=== PATIENT | female | born 1990 | race American Indian/Alaskan Native ===

== ENCOUNTER 2016-12-06 04:44 | Emergency (ER) | payer OTHER, MEDICAID ==
[2016-12-06 05:47] LABS: Basophils % (Auto) 0.3 % (0.0-1.8); Eosinophils % (Auto) 2.8 % (0.0-4.3); Hematocrit 38.9 % (30.3-42.9); Hemoglobin 13.2 gm/dl (10.1-14.3); Mean Corpuscular HGB Conc 34 % (30-34); Mean Corpuscular Hemoglobin 28 pg (28-32); Mean Corpuscular Volume 83 fl (79-97); Platelet Count 158 K/mm3 (140-440); Red Blood Count 4.69 M/mm3 (3.65-5.03); Red Cell Distribution Width 13.5 % (13.2-15.2); White Blood Count 8.1 K/mm3 (4.5-11.0)
[2016-12-06 05:59] LABS: Urine Drugs of Abuse Note Disclamer
[2016-12-06 06:12] LABS: Anion Gap 17 mmol/L; Blood Urea Nitrogen 9 mg/dL (7-17); Calcium 9.3 mg/dL (8.4-10.2); Carbon Dioxide 23 mmol/L (22-30); Chloride 100.6 mmol/L (98-107); Glucose 95 mg/dL (65-100); Sodium 137 mmol/L (137-145)
[2016-12-06 06:27] LABS: Bilirubin,Urine NEG (Negative); Blood,Urine MOD (Negative); Ketones,Urine NEG (Negative); Leukocyte Esterase,Urine NEG (Negative); Mucus,Urine 1+ /HPF; Nitrite,Urine NEG (Negative); Protein,Urine <15 mg/dL mg/dL (Negative)
--- NOTE | 2016-12-06 08:26 | Emergency Department Report ---
ED Psych HPI - General Chief Complaint: Psych Stated Complaint: HEADACHES, SHAKES, SKITSOFRANTIC Time Seen by Provider: 12/06/16 08:08 Source: patient Mode of arrival: Ambulatory - History of Present Illness Initial Comments: 26-year-old female known schizophrenic has not been taking medications for the last 7 months here with complaint of increasing auditory hallucinations. Patient states that a girl named Farida is telling her to do things. She did take a single dose of her Depakote yesterday. Denies suicidal ideation and denies homicidal ideation. States she has having some anger management issues. Recently moved approximately 3 months ago and has no psychiatrist. MD Complaint: other (auditory hallucinations) Associated Psychiatric Symptoms: racing thoughts, auditory hallucinations, other (anger management) Quality: intermittent Improves With: medication Worsens With: none Context: significant life stressor Associated Symptoms: denies: confusion, headache, shortness of breath, nausea, vomiting, syncope, insomnia Treatments Prior to Arrival: none - Related Data Home Medications Medication Instructions Recorded Confirmed Last Taken Divalproex Sodium [Divalproex 500 mg PO BID 12/06/16 12/06/16 12/05/16 Sodium ER] Allergies Allergy/AdvReac Type Severity Reaction Status Date / Time No Known Allergies Allergy Verified 12/06/16 04:57 ED Review of Systems ROS: Stated complaint: HEADACHES, SHAKES, SKITSOFRANTIC Other details as noted in HPI Comment: All other systems reviewed and negative Constitutional: denies: chills, fever Eyes: denies: eye pain, eye discharge, vision change ENT: denies: ear pain, throat pain Respiratory: denies: cough, shortness of breath, wheezing Cardiovascular: denies: chest pain, palpitations Endocrine: no symptoms reported Gastrointestinal: denies: abdominal pain, nausea, diarrhea Genitourinary: denies: urgency, dysuria, discharge Musculoskeletal: denies: back pain, joint swelling, arthralgia Skin: denies: rash, lesions Neurological: denies: headache, weakness, paresthesias Psychiatric: auditory hallucinations. denies: anxiety, depression, visual hallucinations, homicidal thoughts, suicidal thoughts Hematological/Lymphatic: denies: easy bleeding, easy bruising ED Past Medical Hx - Past Medical History Previous Medical History?: Yes Hx Psychiatric Treatment: Yes (Schizophrenia, Anger issues, Anxiety, depression) Additional medical history: Headaches, - Surgical History Past Surgical History?: No - Family History Family history: no significant - Social History Smoking Status: Never Smoker Substance Use Type: None - Medications Home Medications: Home Medications Medication Instructions Recorded Confirmed Last Taken Type Divalproex Sodium [Divalproex 500 mg PO BID 12/06/16 12/06/16 12/05/16 History Sodium ER] ED Physical Exam - General Limitations: No Limitations General appearance: alert, in no apparent distress - Head Head exam: Present: atraumatic, normocephalic - Eye Eye exam: Present: normal appearance - ENT ENT exam: Present: mucous membranes moist - Neck Neck exam: Present: normal inspection. Absent: lymphadenopathy, thyromegaly - Respiratory Respiratory exam: Present: normal lung sounds bilaterally. Absent: respiratory distress, wheezes, rales - Cardiovascular Cardiovascular Exam: Present: regular rate, normal rhythm. Absent: systolic murmur, diastolic murmur, rubs, gallop - GI/Abdominal GI/Abdominal exam: Present: soft, normal bowel sounds - Extremities Exam Extremities exam: Present: normal inspection - Back Exam Back exam: Present: normal inspection - Neurological Exam Neurological exam: Present: alert, oriented X3 - Psychiatric Psychiatric exam: Present: normal affect, normal mood. Absent: homicidal ideation, suicidal ideation - Skin Skin exam: Present: warm, dry, intact, normal color. Absent: rash ED Course Vital Signs 12/06/16 12/06/16 04:58 09:25 Temperature 98.5 F Pulse Rate 85 Respiratory 18 16 Rate Blood Pressure 118/80 [Right] O2 Sat by Pulse 99 100 Oximetry ED Medical Decision Making - Lab Data Result diagrams: 12/06/16 05:03 12/06/16 05:03 Laboratory Results - last 24 hr 12/06/16 12/06/16 12/06/16 05:03 05:03 05:03 WBC RBC Hgb Hct MCV MCH MCHC RDW Plt Count Lymph % (Auto) Holmes % (Auto) Eos % (Auto) Baso % (Auto) Lymph # Holmes # Eos # Baso # Seg Neutrophils % Seg Neutrophils # Sodium 137 Potassium 4.0 Chloride 100.6 Carbon Dioxide 23 Anion Gap 17 BUN 9 Creatinine 0.6 L Estimated GFR > 60 BUN/Creatinine Ratio 15.00 Glucose 95 Calcium 9.3 HCG, Qual Negative Urine Color Urine Turbidity Urine pH Ur Specific [place] Urine Protein Urine Glucose (UA) Urine Ketones Urine Blood Urine Nitrite Urine Bilirubin Urine Urobilinogen Ur Leukocyte Esterase Urine WBC (Auto) Urine RBC (Auto) U Epithel Cells (Auto) Urine Mucus Urine Opiates Screen Urine Methadone Screen Ur Barbiturates Screen Ur Phencyclidine Scrn Ur Amphetamines Screen U Benzodiazepines Scrn Urine Cocaine Screen U Marijuana (THC) Screen Drugs of Abuse Note Plasma/Serum Alcohol < 0.01 12/06/16 12/06/16 12/06/16 05:03 05:14 05:14 WBC 8.1 RBC 4.69 Hgb 13.2 Hct 38.9 MCV 83 MCH 28 MCHC 34 RDW 13.5 Plt Count 158 Lymph % (Auto) 30.3 Holmes % (Auto) 3.3 Eos % (Auto) 2.8 Baso % (Auto) 0.3 Lymph # 2.5 Holmes # 0.3 Eos # 0.2 Baso # 0.0 Seg Neutrophils % 63.3 Seg Neutrophils # 5.2 Sodium Potassium Chloride Carbon Dioxide Anion Gap BUN Creatinine Estimated GFR BUN/Creatinine Ratio Glucose Calcium HCG, Qual Urine Color Yellow Urine Turbidity Clear Urine pH 6.0 Ur Specific [place] 1.028 Urine Protein <15 mg/dl Urine Glucose (UA) Neg Urine Ketones Neg Urine Blood Mod Urine Nitrite Neg Urine Bilirubin Neg Urine Urobilinogen 4.0 Ur Leukocyte Esterase Neg Urine WBC (Auto) 2.0 Urine RBC (Auto) 72.0 U Epithel Cells (Auto) 4.0 Urine Mucus 1+ Urine Opiates Screen Presumptive negative Urine Methadone Screen Presumptive negative Ur Barbiturates Screen Presumptive negative Ur Phencyclidine Scrn Presumptive negative Ur Amphetamines Screen Presumptive negative U Benzodiazepines Scrn Presumptive negative Urine Cocaine Screen Presumptive negative U Marijuana (THC) Screen Presumptive negative Drugs of Abuse Note Disclamer Plasma/Serum Alcohol - Medical Decision Making This is a 26-year-old female here with complaint of increasing anger management issues and auditory hallucinations. Denies SI or HI. This point I do not feel like she is actively a threat to herself or anybody else and I do not plan to 1013 her however I would like to offer her a mental health assessment. Patient evaluated by mental health and they feel comfortable with the patient following up as an outpatient. They will provide outpatient resources for the patient. Critical care attestation.: If time is entered above; I have spent that time in minutes in the direct care of this critically ill patient, excluding procedure time. ED Disposition Clinical Impression: Schizophrenia, Auditory hallucinations Disposition: DC-01 TO HOME OR SELFCARE Is pt being admited?: No Condition: Stable Instructions: Schizophrenia (ED) Additional Instructions: Please follow up with the resources provided by mental health solar resource assessor. Referrals: PRIMARY CARE, [Primary Care Provider] - 3-5 Days
[2016-12-06 14:21] VITALS: BP 96/52
--- NOTE | 2016-12-06 14:31 | Consultation ---
History of Present Illness - Reason for Consult Consult date: 12/06/16 Reason for consult: psychiatric evaluation - Chief Complaint Chief complaint: "I took my meds and felt shaky and dizzy." 26-year-old female known schizophrenic has not been taking medications for the last 7 months here with complaint of increasing auditory hallucinations. She was seen for psychiatric evaluation in the ER. She did take a single dose of her Depakote yesterday. She denies suicidal ideation and denies homicidal ideation. She reports recent command hallucinations to harm herself but denies ever acting on any command hallucinations. She now denies AH. She reports having a stressful situation at her job and the AH started after it. States she has having some anger management issues and throws stuff in her home when she is upset. She lives alone. Recently moved approximately 3 months ago and has no psychiatrist. Her goal for treatment in the ER was to "talk to someone" and find out how to get a new doctor. Medications and Allergies Allergies Allergy/AdvReac Type Severity Reaction Status Date / Time No Known Allergies Allergy Verified 12/06/16 04:57 Home Medications Medication Instructions Recorded Confirmed Last Taken Type Divalproex Sodium [Divalproex 500 mg PO BID 12/06/16 12/06/16 12/05/16 History Sodium ER] Ibuprofen [Motrin] 600 mg PO Q8H PRN #30 tablet 12/06/16 Unknown Rx Past psychiatric history - past Psychiatric treatment and history Psych: Depression - Social History Social history: Lives alone, other (denies alcohol or substance use) Mental Status Exam - Vital signs Last Vital Signs Temp 98.6 F 12/06/16 11:10 Pulse 70 12/06/16 11:10 Resp 16 12/06/16 11:10 BP 96/52 12/06/16 11:10 Pulse Ox 100 12/06/16 11:10 - Exam Narrative exam: at one point in the interview, she closed her eyes and did not answer a question. Orientation: time, place, person Affect: other (childlike) Mood: calm Thought content: other (no SI, no HI) Thought Process: Intact Perceptions: auditory (recent command hallucinations) Speech: normal rate and pattern Concentration: focused Motor activity: normal Level of consciousness: alert Memory: Intact Interaction: cooperative Results Result Diagrams: 12/06/16 05:03 12/06/16 05:03 Abnormal lab results 12/06/16 Range/Units 05:03 Creatinine 0.6 L (0.7-1.2) mg/dL All other labs normal. Assessment and Plan Assessment and plan: Impression: No active suicidal ideation. No homicidal ideation. AH have resolved and there are no command hallucinations. She has a child-like demeanor. She reports living alone but has the support of her mother. Recommendation: Outpatient mental health referrals provided.
== END 2016-12-06 13:00 | disposition home or self-care (01) ==
LOC: ED 04:44
DX: F20.9 Schizophrenia, unspecified (principal); F32.9 Major depressive disorder, single episode, unspecified; F41.9 Anxiety disorder, unspecified
CPT/HCPCS: 36415; 80048; 80307; 81001; 84703; 85025; 99284; G0480; 80320